=== PATIENT | female | born 1930 | race Caucasian/White ===

== ENCOUNTER 2017-02-10 19:24 | Emergency (ER) | payer OTHER, MEDICARE ==
[~2017-02-10] VITALS: Ht 152.4 cm; Wt 68.6 kg
[~2017-02-10 19:24] MED LIST: ARICEPT5 MG PO; ASPIRIN81 M1 PO; ASPIRIN81 M2 PO; ATIVAN0.5 MG PO; ATIVAN1 MG PO; ATORVASTATIN CA10 MG PO; Aricept PO; Azopt 1% Ophth Susp LEFT EYE; BIOTIN300 MCG PO; CARBAMAZEPINE200 MG PO; CEPACOL SORE T1 EAC9 MM; CLEOCIN300 MG PO; COLACE100 MG PO; CONSTULOSE10 GM/15 M PO; COSAMIN ASU CA1 EACH PO; CYMBALTA20 MG PO; CYMBALTA60 MG PO; DOCUSATE SODIU100 MG PO; EXTRA STRENGTH500 M1 PO; IBUPROFEN800 MG PO; LIPITOR10 MG PO; LIPITOR5 MG PO; LISINOPRIL20 MG PO; LORAZEPAM0.5 MG PO; LYRICA75 MG PO; METAMUCIL1 EACH PO; METFORMIN HCL500 MG PO; MIRALAX17 GM PO; MUCINEX DM ER1 EAC1 PO; NAPROSYN500 MG PO; NEXIUM40 MG PO; OS-CAL ULTRA T1 EACH PO; PREMARIN25 MG IM; PRINIVIL10 MG PO; Q-TUSSIN DM SY240 ML PO; REMERON15 M2 PO; SUPER B COMP1 TABLET PO; SYNTHROID50 MCG PO; SYSTANE 0.300 DROP/1 BOTH EYES; Sodium Chloride PO; TOPROL XL6.25 MG PO; TRAVATAN Z5 ML LEFT EYE; UNITHROID50 MCG PO; VALIUM5 MG PO; VITAMIN D31000 UNIT PO; ZESTRIL,PRINIVI10 MG PO; ZESTRIL20 MG PO
[2017-02-10 20:26] LABS: HEMATOCRIT 36.2 % (36.0-46.0); MCH 30.1 PG (29.0-34.0); MCHC 33.4 G/DL (30.0-36.0); MEAN PLAT.VOLUME 9.2 uM^3 (9.5-12.4); PLATELET COUNT 205 K/uL (156-360); RBC DIS.WIDTH-CV 12.7 % (11.8-14.6); RBC DIS.WIDTH-SD 42.2 % (39-53); RED BLOOD COUNT 4.02 M/uL (3.80-5.20); WHITE BLOOD COUNT 12.3 K/uL (4.1-10.2)
[2017-02-10 20:33] LABS: CHLORIDE 103 mEq/L (99-109); SODIUM 138 mEq/L (136-147)
[2017-02-10 20:35] LABS: GLUCOSE 130 mg/dL (70-99)
[2017-02-10 20:37] LABS: ANION GAP 11 MEQ/L (2-14)
[2017-02-10 20:39] LABS: GFR ESTIMATE (CALCULATED) > 59 mL/min/
[2017-02-10 20:40] LABS: UREA NITROGEN (BUN) 16 mg/dL (9-23)
[2017-02-10 20:50] LABS: ADD MIUA? NO; BILIRUBIN NEGATIVE; BLOOD NEGATIVE; COLOR YELLOW ((YELLOW)); GLUCOSE (STRIP) NEGATIVE; KETONES NEGATIVE; LEUKOCYTES NEGATIVE; NITRITE NEGATIVE; PROTEIN (STRIP) 30; SPECIFIC GRAVITY 1.015 (1.000-1.030); UROBILINOGEN 0.2 MG/DL (0.2-1.0)
[2017-02-10 20:55] LABS: INFLUENZA A VIRAL ANTIGEN NEGATIVE; INFLUENZA B VIRAL ANTIGEN NEGATIVE
[2017-02-10 23:21] VITALS: BP 126/58
== END 2017-02-10 23:25 | disposition home or self-care (01) ==
LOC: EME 19:24
PROVIDERS: Emergency Medicine
DX: F03.90 Unspecified dementia, unspecified severity, without behavioral disturbance, psychotic disturbance, mood disturbance, and anxiety (principal); I10 Essential (primary) hypertension; E11.40 Type 2 diabetes mellitus with diabetic neuropathy, unspecified; K21.9 Gastro-esophageal reflux disease without esophagitis; E78.5 Hyperlipidemia, unspecified; I25.10 Atherosclerotic heart disease of native coronary artery without angina pectoris; E03.9 Hypothyroidism, unspecified; F41.9 Anxiety disorder, unspecified; F32.9 Major depressive disorder, single episode, unspecified; Z95.5 Presence of coronary angioplasty implant and graft; Z79.84 Long term (current) use of oral hypoglycemic drugs; Z66 Do not resuscitate; Z51.5 Encounter for palliative care
CPT/HCPCS: 71020; 80048; 81003; 85027; 87086; 87502; 99281; 99284